=== PATIENT | female | born 2000 | race Two or more races ===

== ENCOUNTER 2023-05-18 00:38 | Emergency (ER) | payer OTHER ==
[~2023-05-18] VITALS: Ht 154.9 cm; Wt 60.5 kg
[2023-05-18 01:25] LABS: Urine Bacteria FEW /hpf (None Seen); Urine Blood Negative /uL (Negative); Urine Clarity HAZY (Clear); Urine Color Straw (Yellow); Urine Protein, UAD Negative (Negative); Urine Specific Gravity 1.014 (1.001-1.035); Urine Urobilinogen Normal (Negative); Urine WBC 21 /hpf (0 - 5)
[2023-05-18 01:45] LABS: Basophils # (auto) 0 10 ^3/uL (0-0.2); Basophils % (auto) 0.6 % (0.0-2.0); Eosinophils # (auto) 0.1 10 ^3/uL (0-0.8); Eosinophils % (auto) 1.7 % (0.0-7.0); Hematocrit 40.2 % (36.0-46.0); Hemoglobin 13.6 g/dL (12.2-16.2); Lymphocytes # (auto) 2.5 10 ^3/uL (0.4-5.4); Lymphocytes % (auto) 32.6 % (10.0-50.0); Mean Corpuscular Hemoglobin 28.5 pg (28.0-32.0); Mean Corpuscular Hgb Conc. 33.8 g/dL (32.0-36.0); Mean Corpuscular Volume 84.3 fL (80.0-100.0); Monocytes # (auto) 0.6 10 ^3/uL (0-1.3); Monocytes % (auto) 7.7 % (0.0-12.0); Neutrophils # (auto) 4.4 10 ^3/uL (1.6-8.6); Neutrophils % (auto) 57.4 % (37.0-80.0); Nucleated Red Blood Cells % 0.1 %; Red Blood Cells 4.77 10^6/uL (4.0-5.20); White Blood Cell 7.7 10^3/uL (4.4-10.8)
[2023-05-18 02:04] LABS: Albumin 4.2 g/dL (3.4-5.0); Calcium 8.9 mg/dL (8.5-10.1); Potassium 3.5 mmol/L (3.5-5.1)
[2023-05-18 02:06] LABS: BUN/Creatinine Ratio 15.3 (10.0-20.0)
[2023-05-18 02:09] LABS: Bilirubin, Total 0.4 mg/dL (0.2-1.0); Total Protein 7.7 g/dL (6.4-8.2)
[2023-05-18] MEDS ORDERED: NITR-87 PO (02:52)
[2023-05-18 03:04] VITALS: BP 116/55; PULSE 58; RESP 17; TEMP 98.5; O2SAT 98
== END 2023-05-18 03:05 | disposition home or self-care (01) ==
LOC: ER 00:41
DX: N39.0 Urinary tract infection, site not specified (principal)
CPT/HCPCS: 36415; 74176; 80053; 81001; 83690; 85025

== ENCOUNTER 2023-07-24 06:10 | Emergency (ER) | payer OTHER ==
[~2023-07-24] VITALS: Ht 154.9 cm; Wt 59.4 kg
[~2023-07-24 06:10] MED LIST: NITR-87 PO
[2023-07-24 07:22] LABS: Urine Bacteria NONE SEEN /hpf (None Seen); Urine Blood 3+ /uL (Negative); Urine Clarity CLOUDY (Clear); Urine Color Red (Yellow); Urine Protein, UAD 2+ (Negative); Urine Urobilinogen Normal (Negative); Urine WBC 429 /hpf (0 - 5); Urine WBC Clumps PRESENT /hpf (None Seen)
[2023-07-24 07:28] LABS: Urine Specific Gravity 1.023 (1.001-1.035)
[2023-07-24] MEDS ORDERED: KETOROLAC TROMETH 60MG/2ML VIAL IM ONE (07:30)
[2023-07-24] MEDS ORDERED: IBUP-1454 PO (08:04)
[2023-07-24] MEDS ORDERED: LEVO750T8 PO (08:04)
[2023-07-24] MEDS ORDERED: PHEN-1044 PO (08:04)
[2023-07-24 08:15] VITALS: BP 114/78; PULSE 98; RESP 17; TEMP 97.6; O2SAT 98
== END 2023-07-24 08:16 | disposition home or self-care (01) ==
LOC: ER 06:10
DX: N39.0 Urinary tract infection, site not specified (principal); Z79.899 Other long term (current) drug therapy
CPT/HCPCS: 81001; 96372; 99283; J1885

== ENCOUNTER 2025-01-25 09:24 | Emergency (ER) | payer OTHER ==
[~2025-01-25] VITALS: Ht 154.9 cm; Wt 60.2 kg
[~2025-01-25 09:24] MED LIST changes: +IBUP-1454 PO; +LEVO750T8 PO; +PHEN-1044 PO
[2025-01-25 09:31] VITALS: BP 120/69; PULSE 86; RESP 15; TEMP 98.3; O2SAT 98
--- NOTE | 2025-01-25 09:39 | ED.PDOC ---
Eye-HPI HPI Comments 24 y.o female presents to the ED for a chief complaint of a sore throat x 5 days. Patient reports constant pain that is neither worsening nor improving with OTC medication. Patient also mentioned a fever 2-3 days ago that broke with Tylenol. Patient denies difficulty swallowing, tooth pain, chills or SOB. Chief Complaint: Sore Throat Time Seen by MD: 09:35 Primary Care Provider: NONE Reviewed Notes: Nurses Notes, Medications, Allergies Allergies: Coded Allergies: NO KNOWN ALLERGIES (Unverified , 05/18/23) Home Meds Active Scripts Ibuprofen (Ibuprofen) 600 Mg Tab, 1 TAB PO Q6HP PRN, #20 TAB Prov:JASIEL SMITH PAC 07/24/23 Phenazopyridine HCl (Phenazopyridine Hydrochlo) 100 Mg Tab, 100 MG PO Q8HP PRN, #10 TAB Prov:JASIEL SMITH PAC 07/24/23 Levofloxacin (Levaquin 750 mg) 750 Mg Tab, 1 TAB PO DAILY, #7 TAB Prov:JASIEL SMITH [facility] 07/24/23 Nitrofurantoin Monohydrate Mac (Macrobid) 100 Mg Cap, 100 MG PO BID for 7 Days, #14 CAP Prov:KODI RICKS MD 05/18/23 Information Source: Patient Mode of Arrival: Ambulatory Timing: Days (5) Duration: Since onset Mouth: Swelling, Red Throat Exposed to: None Modifying factors: Analgesics haven't helped Associated signs and symptoms: Sore Throat Past Medical History PAST MEDICAL HISTORY: UTI'S Surgical History: Denies all surgeries CLINICAL ADVISOR History: Denies all CLINICAL ADVISOR Hx Family History Family History: Unknown Social History Smoker: Non-Smoker Alcohol: Denies ETOH Use Drugs: Denies Drug Use Lives In: Home Constitutional: denies: chills, diaphoresis, fatigue, fever, malaise, sweats, weakness, others EENTM: reports: throat pain, throat swelling; denies: blurred vision, double vision, ear bleeding, ear discharge, ear drainage, ear pain, ear ringing, eye pain, eye redness, hearing loss, mouth pain, mouth swelling, nasal discharge, nose bleeding, nose congestion, nose pain, photophobia, tearing, voice changes, others Respiratory: denies: cough, hemoptysis, orthopnea, SOB at rest, shortness of breath, SOB with excertion, stridor, wheezing, others Cardiovascular: denies: chest pain, dizzy spells, diaphoresis, Dyspnea on exertion, edema, irregular heart beat, left arm pain, lightheadedness, palpitations, PND, syncope, others Gastrointestinal: denies: abdomen distended, abdominal pain, blood streaked bowels, constipated, diarrhea, dysphagia, difficulty swallowing, hematemesis, melena, nausea, poor appetite, poor fluid intake, rectal bleeding, rectal pain, vomiting, others Genitourinary: denies: abnormal vagina bleeding, burning, dyspareunia, dysuria, flank pain, frequency, hematuria, incontinence, pain, , vagina discharge, urgency, others Neurological: denies: dizziness, fainting, headache, left sided numbness, left sided weakness, numbness, paresthesia, pre-existing deficit, right sided num bness, right sided weakness, seizure, speech problems, tingling, tremors, weakness, others Musculoskeletal: denies: back pain, gout, joint pain, joint swelling, muscle pain, muscle stiffness, neck pain, others Integumetry: denies: bruises, change in color, change in hair/nails, dryness, laceration, lesions, lumps, rash, wounds, others Allergic/Immunocompromised: denies: Difficulty Healing, Frequent Infections, Hives, Itching, others Hematologic/Lymphatic: denies: anemia, blood clots, easy bleeding, easy bruising, swollen glands, others Endocrine: denies: excessive hunger, excessive sweating, excessive thirst, excessive urination, flushing, intolerance to cold, intolerance to heat, unexplained weight gain, unexplained weight loss, others Psychiatric: denies: anxiety, bipolar disorder, depression, hopeless, panic disorder, schizophrenia, sleepless, suicidal, others All Other Systems: Reviewed and Negative Physical Exam General Appearance: Moderate Distress HEENT: Pharyngeal Erythema Neck: Full Range of Motion, Non-Tender, Normal, Normal Inspection Respiratory: Chest Non-Tender, Lungs Clear, No Accessory Muscle Use, No Respiratory Distress, Normal Breath Sounds Cardiovascular: No Edema, No JVD, No Murmur, No Gallop, Normal Peripheral Pulses, Regular Rate/Rhythm Breast Exam: Deferred Gastrointestinal: No Organomegaly, Non Tender, No Pulsatile Mass, Normal Bowel Sounds, Soft Genitalia: Deferred Pelvic: Deferred Rectal: Deferred Extremities: No calf tenderness, Normal capillary refill, Normal inspection, Normal range of motion, Non-tender, No pedal edema Musculoskeletal : Apperance: Normal Neurologic: Alert, curtain drier II-XII nml as Tested, No Motor Deficits, Normal Affect, Normal Mood, No Sensory Deficits Cerebellar Function: Normal Reflexes: Normal Skin: Dry, Normal Color, Warm Peripheral Pulses: 3+ Radial (R), 3+ Radial (L) Lymphatic: No Adenopathy Was a procedure done? Was a procedure done?: No EENT DIFF Eye: N/A Sore Throat: Peritonsillar Abscess, Peritonsillar Cellulitis, Viral Pharyngitis, URI X-Ray, Labs, Meds, VS Vital Signs Date Time Temp Pulse Resp B/P (MAP) Pulse Ox O2 Delivery O2 Flow Rate FiO2 01/25/25 09:31 98.3 86 15 120/69 (86) 98 98.3 Patient alert. Complaining of sore throat. Vitals stable. Answering questions. Ambulating without difficulty. Saturation pristine on room air. Heart rate within normal limits. On examination she does have redness of the pharynx. Was given prescription of amoxicillin antibiotic. Reviewed her history. Explained to the patient. Was told to follow up with her primary care. Was told to come back if there is any problem. Time of 1ST Reevaluation: 09:37 Reevaluation 1ST: Improved Patient Education/Counseling: Diagnosis, Treatment, Prognosis Family Education/Counseling: No Family Present Departure 1 Departure Time of Disposition: 09:40 Impression: Primary Impression: Pharyngitis Qualified Codes: J02.9 - Acute pharyngitis, unspecified Disposition: 01 HOME / SELF CARE / HOMELESS Condition: Good e-Prescriptions Amoxicillin Trihydrate (Amoxicillin) 500 Mg Cap 1 CAP PO TID for 7 Days, #21 CAP Prov: GUADALUPE HOPSON MD 01/25/25 Discharged With: Self Critical Care Note Critical Care Time?: No Stability Stability form required: No I personally scribed for GUADALUPE HOPSON MD ([email or web address]) on 01/25/25 at 09:39. Electronically submitted by Ela Weeks ([facility]). GUADALUPE HOPSON MD Jan 25, 2025 09:39
[2025-01-25] MEDS ORDERED: AMOX500C2 PO (09:41)
== END 2025-01-25 09:42 | disposition home or self-care (01) ==
LOC: ER 09:24
DX: J02.9 Acute pharyngitis, unspecified (principal)